=== PATIENT | male | born 1975 | race Caucasian/White ===

== ENCOUNTER 2018-10-08 12:21 | Emergency (ER) | payer OTHER, SELFPAY ==
[2018-10-08] VITALS (34 sets, daily range): BP systolic 103–113; BP diastolic 49–64; PULSE 54–68; RESP 1–31; TEMP 36.7; O2SAT 90–99
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
[2018-10-08] MEDS: MORPHine 10 MG/ML VIAL 4 MG IVP ×2 (12:32→13:21)
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
[2018-10-08 13:04] LABS: Abs Immature Grans 0.04 k/cumm (0.0-0.09); Absolute Basophil Count 0.04 k/cumm (0.0-0.2); Absolute Eosinophil Count 0.13 k/cumm (0.0-0.7); Absolute Lymphocyte Count 2.07 k/cumm (1.2-3.4); Absolute Monocyte Count 0.61 k/cumm (0.11-0.7); Absolute Neutrophil Count 5.26 k/cumm (1.2-6.7); Basophils % 0.5; Eosinophils % 1.6; HCT 46.2 % (40.0-50.0); HGB 15.4 g/dL (13.5-17.5); Immature Grans % 0.5; Lymphocytes % 25.4; Mean Corp. HGB Concentration 33.3 g/dL (32.0-36.0); Mean Corpuscular Hemoglobin 28.4 pg (27.0-33.0); Mean Corpuscular Volume 85.2 fL (80-95); Mean Platelet Volume 12.4 fL (8.0-11.0); Monocytes % 7.5; Neutrophils % 64.5; Platelet Count 195 x1000/uL (130-400); RBC 5.42 m/cumm (4.50-6.00); RBC Distribution Width 13.6 % (11.8-14.1); White Blood Cell Count 8.15 k/cumm (4.4-10.8)
[2018-10-08 13:21] LABS: ALT 52 U/L (12-78); AST 37 U/L (15-37); Albumin 3.9 g/dL (3.4-5.0); Alkaline Phosphatase 93 U/L (46-116); Anion Gap 12.2 mmol/L (3-11); BUN 16 mg/dL (7-18); Bilirubin, Total 0.5 mg/dL (0.2-1.0); CO2 22.8 mmol/L (21.0-32.0); Calcium 8.6 mg/dL (8.5-10.1); Chloride 104 mmol/L (98-107); Glucose 120 mg/dL (70-100); Potassium 4.2 mmol/L (3.5-5.1); Sodium 139 mmol/L (136-145); Total Protein 7.4 g/dL (6.4-8.2)
[2018-10-08] MEDS: Normal Saline 1,000 ML 1000 ML IV (13:21)
[2018-10-08] MEDS: Omnipaque 350 MG/ML 100 ML BTL IV (13:24)
[2018-10-08 13:27] LABS: Troponin I 0.08 ng/mL (0.00-0.06)
--- NOTE | 2018-10-08 14:23 | NUR.NOTE ---
assumed care of patientNursing Note:
[2018-10-08] MEDS: Ketorolac 30 MG/ML VIAL IVP (15:05)
[2018-10-08] MEDS: HYDROcodone 5/Acetaminophen 325 TAB PO (18:54)
== END 2018-10-08 18:54 | disposition home or self-care (01) ==
PROVIDERS: Emergency Provider Emergency Medicine; PCP Physician Assistant
DX: S20.211A Contusion of right front wall of thorax, initial encounter (principal); S20.212A Contusion of left front wall of thorax, initial encounter; W22.8XXA Striking against or struck by other objects, initial encounter; Y99.0 Civilian activity done for income or pay
CPT/HCPCS: 36415; 80053; 93005; 96374; 96375; 96376; 99285; 71260; 84484; 85025; 93010; J1885; J2270; J3490

== ENCOUNTER 2021-01-11 03:17 | Outpatient (CLI) | payer OTHER, SELFPAY ==
[2021-01-11 13:01] LABS: Hemoglobin A1C 6.5 % (<5.7)
[2021-01-11 13:20] LABS: TSH 0.85 uIU/mL (0.36-3.74)
[2021-01-11 16:57] LABS: ALT 58 U/L (16-63); AST 25 U/L (15-37); Albumin 3.7 g/dL (3.4-5.0); Alkaline Phosphatase 97 U/L (46-116); Anion Gap 10.4 mmol/L (3-11); BUN 16 mg/dL (7-18); Bilirubin, Total 0.4 mg/dL (0.2-1.0); CO2 25.6 mmol/L (21.0-32.0); CREATININE 1.1 mg/dL (0.70-1.30); Calcium 8.7 mg/dL (8.5-10.1); Chloride 104 mmol/L (98-107); Glucose 188 mg/dL (74-106); Potassium 4.6 mmol/L (3.5-5.1); Sodium 140 mmol/L (136-145)
[2021-01-11 17:12] LABS: Calculated LDL 108 mg/dL (<100); Cholesterol 189 mg/dL (<200); HDL Cholesterol 25 mg/dL (40-60); Triglyceride 284 mg/dL (<150)
== END 2021-01-11 03:18 | disposition home or self-care (01) ==
LOC: LOS 03:18
PROVIDERS: PCP Physician Assistant; Visit Provider Physician Assistant
DX: E11.8 Type 2 diabetes mellitus with unspecified complications (principal); E66.01 Morbid (severe) obesity due to excess calories
CPT/HCPCS: 36415; 80053; 80061; 83036; 84443